=== PATIENT | female | born 1990 | race Caucasian/White ===

== ENCOUNTER 2018-12-07 18:10 | Emergency (ER) | payer BC ==
--- NOTE | 2018-12-07 18:52 | ERPHSYRPT ---
- History of Present Illness Time Seen by Provider: 12/07/18 18:46 Source: patient Exam Limitations: no limitations Patient Subjective Stated Complaint: "I have had back pain in lower back for past 2 years for unknown reason" "I seen a chiropractor this last wed am and he said probably a. bulging disc." Triage Nursing Assessment: AAox3, color good, resp easy, lungs clear, walked in , tearful off and on. Denies injury. C/o pain in lower back started up sun. States has occurred one other time approx 2 yrs ago, ? cause. Physician History: pt is 28 years old with prior hx LBP 2 years ago resolved after chioro tx and had similar symptoms today , but now with fever, no flu symptoms but left flank pain and tenderness, no hx cancer, no trauma, no urinary sx, no pelvic pain or abd pain, or N/V, no vag discharge; abd is soft and nontender without peritoneal signs or distension; left flank tender; chest is clear, midline spine nontender; no neuro findings. no hx IVD use. Timing/Duration: day(s) Method of Injury: bending Quality: radiating (to left flank), sharp Back Pain Location: paraspinous muscles Severity of Pain-Max: moderate Severity of Pain-Current: moderate Modifying Factors: Improves With: movement Associated Symptoms: fever, lower back pain, No loss of bowel control, No constipation, No nausea, No vomiting, No problems urinating, No weakness Previous symptoms: different symptoms, recently treated Allergies/Adverse Reactions: No Known Drug Allergies Allergy (Unverified 12/07/18 18:34) Hx Tetanus, Diphtheria Vaccination/Date Given: Yes Hx Influenza Vaccination/Date Given: Yes Hx Pneumococcal Vaccination/Date Given: No Immunizations Up to Date: Yes - Review of Systems Constitutional: Fever, No Chills Eyes: No Symptoms Ears, Nose, & Throat: No Symptoms Respiratory: No Cough, No Dyspnea Cardiac: No Chest Pain, No Edema, No Syncope Abdominal/Gastrointestinal: No Abdominal Pain, No Nausea, No Vomiting, No Diarrhea Genitourinary Symptoms: Flank Pain, No Dysuria Musculoskeletal: Back Pain, No Neck Pain, No Fall, No Injury, No Joint Pain, No Myalgias Skin: No Rash Neurological: No Dizziness, No Focal Weakness, No Parasthesia, No Sensory Changes Psychological: No Symptoms Endocrine: No Symptoms All Other Systems: Reviewed and Negative - Past Medical History Pertinent Past Medical History: No Neurological History: No Pertinent History ENT History: No Pertinent History Cardiac History: No Pertinent History Respiratory History: No Pertinent History Endocrine Medical History: No Pertinent History Musculoskeletal History: No Pertinent History GI Medical History: No Pertinent History History: No Pertinent History Psycho-Social History: No Pertinent History Female Reproductive Disorders: Fibroids - Past Surgical History Past Surgical History: Yes (c section) Neuro Surgical History: No Pertinent History Cardiac: No Pertinent History Respiratory: No Pertinent History Gastrointestinal: No Pertinent History Genitourinary: No Pertinent History Musculoskeletal: No Pertinent History Female Surgical History: No Pertinent History - Social History Smoking Status: Never smoker Drug Use: none Patient Lives Alone: No - Female History Hx Last Menstrual Period: Have IUD Hx Now: No - Nursing Vital Signs Nursing Vital Signs: Initial Vital Signs Temperature 100.3 F 12/07/18 18:20 Pulse Rate 64 12/07/18 18:20 Blood Pressure 128/87 12/07/18 18:20 O2 Sat by Pulse Oximetry 99 12/07/18 18:20 Pain Scale Pain Intensity 5 - Physical Exam General Appearance: no apparent distress, alert Eye Exam: PERRL/EOMI, eyes nml inspection Ears, Nose, Throat Exam: normal ENT inspection Neck Exam: normal inspection, non-tender, supple, full range of motion, No meningismus, No midline tenderness Respiratory Exam: normal breath sounds, lungs clear, No respiratory distress Cardiovascular Exam: regular rate/rhythm, normal heart sounds Gastrointestinal Exam: soft, No tenderness, No mass Pelvic Exam: deferred Rectal Exam: deferred Back Exam: CVA tenderness, decreased range of motion, muscle spasm, No vertebral tenderness, No point tenderness Extremity Exam: normal inspection, normal range of motion, No calf tenderness, No pedal edema Neurologic Exam: alert, oriented x 3, cooperative, pet care worker II-XII nml as tested, normal mood/affect, nml station & gait, sensation nml, No motor deficits Skin Exam: normal color, warm, dry, No rash SpO2: 99 - Course Nursing assessment & vital signs reviewed: Yes - CT Exams Abdomen/Pelvis CT Interpretation: Tele-radiologist Report, Normal Appendix, No appendicitis, Other (no pyelo seen) Ordered Tests: Active Orders 24 hr Category Date Time Status IV Insertion STAT Care 12/07/18 21:43 Active ABDOMEN AND PELVIS W/0 CONTRAS [CT] Stat Exams 12/07/18 21:43 Taken CBC W DIFF Stat Lab 12/07/18 19:50 Completed CMP Stat Lab 12/07/18 19:50 Completed HCG QUALITATIVE,SERUM Stat Lab 12/07/18 19:50 Completed Lactic Acid Stat Lab 12/07/18 21:08 Completed UA W/RFX UR CULTURE Stat Lab 12/07/18 19:50 Completed Medication Summary Discontinued Medications Generic Name Dose Route Start Last Admin Trade Name Shanta PRN Reason Stop Dose Admin Hydrocodone Bitart/Acetaminophen 1 tab 12/07/18 20:48 12/07/18 20:58 Eden 10/325 Mg Tablet PO 12/07/18 20:49 1 tab STAT ONE Administration Hydrocodone Bitart/Acetaminophen Confirm 12/07/18 20:57 Eden 10/325 Mg Tablet Administered 12/07/18 20:58 Dose 1 tab .ROUTE .STK-MED ONE Hydromorphone HCl 1 mg 12/07/18 21:43 12/07/18 22:49 Hydromorphone 1 Mg/Ml Ampule IV 12/07/18 21:44 1 mg STAT ONE Administration Hydromorphone HCl Confirm 12/07/18 22:32 Hydromorphone 1 Mg/Ml Ampule Administered 12/07/18 22:33 Dose 1 mg .ROUTE .STK-MED ONE Sodium Chloride 1,000 mls @ 999 mls/hr 12/07/18 21:43 12/07/18 22:50 Sodium Chloride 0.9% 1000 Ml IV 12/07/18 22:43 999 mls/hr .Q1H1M STA Administration Sodium Chloride Confirm 12/07/18 22:33 Sodium Chloride 0.9% 1000 Ml Administered 12/07/18 22:34 Dose 1,000 mls @ ud .ROUTE .STK-MED ONE Ketorolac Tromethamine 60 mg 12/07/18 19:43 12/07/18 20:04 Toradol 30 Mg Injection IM 12/07/18 19:44 60 mg STAT ONE Administration Ketorolac Tromethamine Confirm 12/07/18 20:03 Toradol 30 Mg Injection Administered 12/07/18 20:04 Dose 60 mg .ROUTE .STK-MED ONE Orphenadrine Citrate 60 mg 12/07/18 19:43 12/07/18 20:03 Norflex 60 Mg/2 Ml IM 12/07/18 19:44 60 mg STAT ONE Administration Orphenadrine Citrate Confirm 12/07/18 20:03 Norflex 60 Mg/2 Ml Administered 12/07/18 20:04 Dose 60 mg .ROUTE .STK-MED ONE Tizanidine HCl 8 mg 12/07/18 20:48 12/07/18 21:10 Zanaflex 4 Mg PO 12/07/18 20:49 8 mg STAT ONE Administration Lab/Rad Data: Laboratory Result Diagrams 12/07/18 19:50 12/07/18 19:50 Laboratory Results 12/07/18 12/07/18 12/07/18 Range/Units 21:10 21:08 19:50 WBC (4.0-10.5) K/mm3 RBC (4.1-5.4) M/mm3 Hgb (12.0-16.0) gm/dl Hct (35-47) % MCV (78-100) fl MCH (26-32) pg MCHC (32-36) g/dl RDW (11.5-14.0) % Plt Count (150-450) K/mm3 MPV (6-9.5) fl Gran % (36.0-66.0) % Eos # (Auto) (0-0.5) Absolute Lymphs (auto) (1.0-4.6) Absolute Monos (auto) (0.0-1.3) Lymphocytes % (24.0-44.0) % Monocytes % (0.0-12.0) % Eosinophils % (0.00-5.0) % Basophils % (0.0-0.4) % Absolute Granulocytes (1.4-6.9) Basophils # (0-0.4) Sodium (137-145) mmol/L Potassium (3.5-5.1) mmol/L Chloride (98-107) mmol/L Carbon Dioxide (22-30) mmol/L Anion Gap (5-15) MEQ/L BUN (7-17) mg/dL Creatinine (0.52-1.04) mg/dL Estimated GFR ML/MIN Glucose (74-106) mg/dL Lactic Acid 1.1 (0.4-2.0) Calcium (8.4-10.2) mg/dL Total Bilirubin (0.2-1.3) mg/dL AST (14-36) U/L ALT (0-35) U/L Alkaline Phosphatase (38-126) U/L Serum Total Protein (6.3-8.2) g/dL Albumin (3.5-5.0) g/dL Serum , Qual (Negative) Urine Color YELLOW (YELLOW) Urine Appearance CLEAR (CLEAR) Urine pH 5.0 (5-6) Ur Specific [place] 1.013 (1.005-1.025) Urine Protein NEGATIVE (Negative) Urine Ketones NEGATIVE (NEGATIVE) Urine Blood NEGATIVE (0-5) Viet/ul Urine Nitrite NEGATIVE (NEGATIVE) Urine Bilirubin NEGATIVE (NEGATIVE) Urine Urobilinogen NEGATIVE (0-1) mg/dL Ur Leukocyte Esterase NEGATIVE (NEGATIVE) Urine WBC (Auto) NONE (0-5) /HPF Urine RBC (Auto) 0-2 (0-2) /HPF U Epithel Cells (Auto) RARE (FEW) /HPF Urine Bacteria (Auto) NONE (NEGATIVE) /HPF Urine Mucus (Auto) SLIGHT (NEGATIVE) /HPF Urine Culture Reflexed NO (NO) Urine Glucose NEGATIVE (NEGATIVE) mg/dL Influenza Type A Ag NEGATIVE (NEGATIVE) Influenza Type B Ag NEGATIVE (NEGATIVE) RSV (PCR) NEGATIVE (Negative) 12/07/18 12/07/18 12/07/18 Range/Units 19:50 19:50 19:50 WBC 9.4 (4.0-10.5) K/mm3 RBC 4.65 (4.1-5.4) M/mm3 Hgb 13.2 (12.0-16.0) gm/dl Hct 39.8 (35-47) % MCV 85.6 (78-100) fl MCH 28.4 (26-32) pg MCHC 33.2 (32-36) g/dl RDW 13.0 (11.5-14.0) % Plt Count 186 (150-450) K/mm3 MPV 10.8 H (6-9.5) fl Gran % 67.7 H (36.0-66.0) % Eos # (Auto) 0.30 (0-0.5) Absolute Lymphs (auto) 2.11 (1.0-4.6) Absolute Monos (auto) 0.61 (0.0-1.3) Lymphocytes % 22.4 L (24.0-44.0) % Monocytes % 6.5 (0.0-12.0) % Eosinophils % 3.2 (0.00-5.0) % Basophils % 0.2 (0.0-0.4) % Absolute Granulocytes 6.38 (1.4-6.9) Basophils # 0.02 (0-0.4) Sodium 141 (137-145) mmol/L Potassium 4.3 (3.5-5.1) mmol/L Chloride 106 (98-107) mmol/L Carbon Dioxide 27 (22-30) mmol/L Anion Gap 12.2 (5-15) MEQ/L BUN 13 (7-17) mg/dL Creatinine 0.69 (0.52-1.04) mg/dL Estimated GFR > 60.0 ML/MIN Glucose 92 (74-106) mg/dL Lactic Acid (0.4-2.0) Calcium 9.6 (8.4-10.2) mg/dL Total Bilirubin 0.40 (0.2-1.3) mg/dL AST 21 (14-36) U/L ALT 23 (0-35) U/L Alkaline Phosphatase 54 (38-126) U/L Serum Total Protein 7.1 (6.3-8.2) g/dL Albumin 4.2 (3.5-5.0) g/dL Serum , Qual NEGATIVE (Negative) Urine Color (YELLOW) Urine Appearance (CLEAR) Urine pH (5-6) Ur Specific [place] (1.005-1.025) Urine Protein (Negative) Urine Ketones (NEGATIVE) Urine Blood (0-5) Viet/ul Urine Nitrite (NEGATIVE) Urine Bilirubin (NEGATIVE) Urine Urobilinogen (0-1) mg/dL Ur Leukocyte Esterase (NEGATIVE) Urine WBC (Auto) (0-5) /HPF Urine RBC (Auto) (0-2) /HPF U Epithel Cells (Auto) (FEW) /HPF Urine Bacteria (Auto) (NEGATIVE) /HPF Urine Mucus (Auto) (NEGATIVE) /HPF Urine Culture Reflexed (NO) Urine Glucose (NEGATIVE) mg/dL Influenza Type A Ag (NEGATIVE) Influenza Type B Ag (NEGATIVE) RSV (PCR) (Negative) - Progress Progress: improved, re-examined Progress Note: 12/07/18 21:02 discussed risk/benefit and that we cannot find source for elevated temp , but pt declines CXR and unsderstands there may be a pneumonia or other pathology not detected, and also that undetected pyelonephritis, but feels that this is just her back , and prefers not to start ab, 12/07/18 21:[address] to exclude pathology in flank/abd as fever source, still needs pain relief so will go with dilaudid 12/07/18 22:01 this will require an extended evaluation time but is in the best interest of the pt as her pain is not relieved and she has fever which is concerning now for pyelo or other pathology. 12/07/18 23:23 pt had pain relief, discussed CT and that undetected pathology may still be evolving and pt choses DC and out pt f/u at this time , and also would like ab for potential urinary and f/u PCP 12/07/18 23:37 prescription for norco was destroyed and not given to pt as inpect could not be completed. Counseled pt/family regarding: lab results, diagnosis, need for follow-up - Departure Time of Disposition: 23:24 Departure Disposition: Home Clinical Impression: Fever of unknown origin (FUO) Condition: Good Critical Care Time: No Referrals: DOCTOR,NO FAMILY [Primary Care Provider] - Instructions: Fever of Unknown Origin (DC), Kidney Infection (DC) Additional Instructions: we have not been able to find a specific cause for your fever or back pain and therefore these require furhter workup with your Dr and return meantime if furhter symptms of concern, such as dizziness or vomiting, or weakness or numbness or other. as discussed we are providing instructions for pyelonephritis since this could still be occurring even with normal CT and urine testing. Prescriptions: Hydrocodone/APAP 5-325 Tab^^^ [Eden 5-325 Tablet^^^] 1 tab PO Q6HPRN PRN #10 tablet MDD 6 PRN Reason: Pain Cyclobenzaprine HCl [Flexeril] 10 mg PO Q8HPRN PRN #20 tablet PRN Reason: Pain Levofloxacin [Levaquin] 500 mg PO DAILY #10 tablet
[2018-12-07] MEDS ORDERED: Norflex 60 MG/2 ML IM ONE (19:43)
[2018-12-07] MEDS ORDERED: TORAdol 30 mg Injection IM ONE (19:43)
[2018-12-07] MEDS ORDERED: Norflex 60 MG/2 ML ONE (20:03)
[2018-12-07] MEDS ORDERED: TORAdol 30 mg Injection ONE (20:03)
[2018-12-07 20:07] LABS: BASOPHIL % 0.2 % (0.0-0.4); Basophil (Absolute #) 0.02 (0-0.4); Eosinophil % 3.2 % (0.00-5.0); Granulocyte Absolute (ANC) 6.38 (1.4-6.9); Granulocytes % 67.7 % (36.0-66.0); Hematocrit 39.8 % (35-47); Hemoglobin 13.2 gm/dl (12.0-16.0); Lymphocyte (Absolute #) 2.11 (1.0-4.6); Lymphocytes % 22.4 % (24.0-44.0); Mean Cell Volume 85.6 fl (78-100); Mean Corpuscular Hemoglobin 28.4 pg (26-32); Mean Corpuscular Hgb Concent. 33.2 g/dl (32-36); Mean Platelet Volume 10.8 fl (6-9.5); Monocyte (Absolute #) 0.61 (0.0-1.3); Monocytes % 6.5 % (0.0-12.0); Platelet Count 186 K/mm3 (150-450); Red Blood Count 4.65 M/mm3 (4.1-5.4); White Blood Count 9.4 K/mm3 (4.0-10.5)
[2018-12-07 20:24] LABS: ALBUMIN 4.2 g/dL (3.5-5.0); ALKALINE PHOSPHATASE 54 U/L (38-126); ANION GAP 12.2 MEQ/L (5-15); BLOOD UREA NITROGEN 13 mg/dL (7-17); CHLORIDE 106 mmol/L (98-107); Calcium 9.6 mg/dL (8.4-10.2); Carbon Dioxide 27 mmol/L (22-30); Creatinine 1 0.69 mg/dL (0.52-1.04); Glucose 92 mg/dL (74-106); Potassium 4.3 mmol/L (3.5-5.1); SGOT/AST 21 U/L (14-36); SGPT/ALT 23 U/L (0-35); SODIUM 141 mmol/L (137-145); Total Protein 7.1 g/dL (6.3-8.2)
[2018-12-07 20:44] LABS: Appearance CLEAR (CLEAR); Bilirubin NEGATIVE (NEGATIVE); Blood NEGATIVE Ery/ul (0-5); Epithelial Cells RARE /HPF (FEW); Glucose NEGATIVE (NEGATIVE); Ketones NEGATIVE (NEGATIVE); Leukocyte Esterase NEGATIVE (NEGATIVE); Mucus SLIGHT /HPF (NEGATIVE); Nitrite NEGATIVE (NEGATIVE); Protein,Urine Dip NEGATIVE (Negative); RBC 0-2 /HPF (0-2); Specific Gravity 1.013 (1.005-1.025); Urobilinogen NEGATIVE mg/dL (0-1)
[2018-12-07] MEDS ORDERED: Zanaflex 4 MG PO ONE (20:48)
[2018-12-07] MEDS ORDERED: Norco 10/325 MG Tablet PO ONE (20:48)
[2018-12-07] MEDS ORDERED: Norco 10/325 MG Tablet ONE (20:57)
[2018-12-07] MEDS ORDERED: Hydromorphone 1 mg/ml Ampule IV ONE ×2 (21:43→23:37)
[2018-12-07] MEDS ORDERED: Sodium Chloride 0.9% 1000 ML 1,000 ML IV STA (21:43)
[2018-12-07 21:59] LABS: INFLUENZA A NEGATIVE (NEGATIVE); INFLUENZA B NEGATIVE (NEGATIVE); RESPIRATORY SYNCTIAL VIRUS NEGATIVE (Negative)
[2018-12-07] MEDS ORDERED: Hydromorphone 1 mg/ml Ampule ONE ×2 (22:32→23:40)
[2018-12-07] MEDS ORDERED: Sodium Chloride 0.9% 1000 ML 1,000 ML ONE (22:33)
[2018-12-07 23:48] VITALS: BP 98/59; PULSE 78; O2SAT 95
[2018-12-08] MEDS ORDERED: NORCO 5/325 MG PO ONE (00:06)
[2018-12-08] MEDS ORDERED: NORCO 5/325 MG ONE (00:30)
--- NOTE | 2018-12-08 08:12 | XRAY ---
Indication: Bilateral flank pain. Low-grade fever. Multiple contiguous axial images obtained through the abdomen and pelvis without contrast as ordered. Comparison: None Lung bases demonstrates minimal bibasilar fibrosis/scarring. No infiltrate or effusion. Heart is not enlarged. Noncontrasted stomach and bowel loops appear nonobstructed. Normal appendix. IUD in situ. Borderline splenomegaly measuring 12.7 cm in greatest axial dimension. Remaining liver, gallbladder, pancreas, spleen, adrenal glands, kidneys, ureters, bladder, and aorta appear unremarkable for noncontrast exam. Osseous structures intact. Impression: 1. Borderline splenomegaly and IUD in situ. 2. Remaining CT abdomen/pelvis without contrast exam is negative. Comment: Preliminary interpretation was made by [facility]. No critical discrepancy. CTDI 23.68
== END 2018-12-08 00:35 | disposition home or self-care (01) ==
LOC: ED 18:10
DX: R50.9 Fever, unspecified (principal); M54.5 Low back pain
CPT/HCPCS: 36000; 36415; 74176; 80053; 81001; 81025; 83605; 85025; 87631; 96360; 96372; 96374; 96376; 99284; J1170; J1885; J2360; A9270-GY